=== PATIENT | male | born 1995 | race Hispanic/Latino ===

== ENCOUNTER 2022-03-21 09:15 | Emergency (ER) | payer BC ==
[~2022-03-21] VITALS: Ht 185.4 cm; Wt 84.4 kg
[2022-03-21 09:20] VITALS: BP 128/74
[2022-03-21] MEDS ORDERED: NAPROXEN 500 MG TABLET PO STA (09:22)
[2022-03-21] MEDS ORDERED: NAPR375T6 PO (10:12)
[2022-03-21] MEDS ORDERED: IBUPROFEN 600 MG TABLET PO ONE (10:30)
== END 2022-03-21 10:21 | disposition home or self-care (01) ==
LOC: EDBD 09:15 → EDH 09:15
DX: S63.285A Dislocation of proximal interphalangeal joint of left ring finger, initial encounter (principal); Z98.890 Other specified postprocedural states; X58.XXXA Exposure to other specified factors, initial encounter; Y93.71 Activity, boxing; Y92.89 Other specified places as the place of occurrence of the external cause; Y99.8 Other external cause status
CPT/HCPCS: 26770; 29130; 73120

== ENCOUNTER 2022-06-07 11:40 | Emergency (ER) | payer BC, OTHER ==
[~2022-06-07] VITALS: Ht 185.4 cm; Wt 81.6 kg
[~2022-06-07 11:40] MED LIST: NAPR375T6 PO
[2022-06-07 11:45] VITALS: BP 149/84
[2022-06-07] MEDS ORDERED: LIDOCAINE HCL 1% 20 ML VIAL INJ SCH (12:00)
[2022-06-07] MEDS ORDERED: KETOROLAC 60 MG VIAL (30MG/ML) IM ONE (12:00)
[2022-06-07] MEDS ORDERED: NAPR-1196 PO (13:33)
== END 2022-06-07 13:48 | disposition home or self-care (01) ==
LOC: EDH 11:45
DX: S63.285A Dislocation of proximal interphalangeal joint of left ring finger, initial encounter (principal); Z98.890 Other specified postprocedural states; X58.XXXA Exposure to other specified factors, initial encounter; Y93.89 Activity, other specified; Y92.89 Other specified places as the place of occurrence of the external cause; Y99.8 Other external cause status
CPT/HCPCS: 99284; 26770; 73140 ×2; 96372; J1885